=== PATIENT | female | born 1985 | race Two or more races ===

== ENCOUNTER 2018-11-28 10:19 | Inpatient (IN) | payer OTHER ==
[2018-11-25 12:56] VITALS: BMI 38.4
[2018-11-28] MEDS ORDERED: BUPIVACAINE HCL 0.25% 125 MG/50 ML VIAL ONE (11:04)
[2018-11-28] MEDS ORDERED: MIDAZOLAM HCL 2 MG/2 ML SINGLE DOSE VIAL ONE ×2 (11:16→12:20)
[2018-11-28] MEDS ORDERED: BUPIVACAINE HCL/PF 0.5% (5 MG/ML) 30 ML VIAL IJ ONE (11:17)
[2018-11-28] MEDS ORDERED: DEXAMETHASONE SOD PHOSPHATE/PF 10 MG/ML SDV ONE (11:17)
--- NOTE | 2018-11-28 11:57 | HP ---
Admitting History and Physical - Admission Chief Complaint: Morbid obesity History Source: Patient Limitations to Obtaining History: No Limitations - Past Medical History Pulmonary: Yes: Sleep Apnea ...LMP: 11/14/18 - Past Surgical History Past Surgical History: Yes: Hysterectomy - Smoking History Smoking history: Never smoked Have you smoked in the past 12 months: No - Alcohol/Substance Use Hx Alcohol Use: No - Social History ADL: Independent Home Medications - Allergies Allergies/Adverse Reactions: Allergies Allergy/AdvReac Type Severity Reaction Status Date / Time Penicillins Allergy Unknown Verified 11/25/18 12:45 - Home Medications Home Medications: Ambulatory Orders Docusate Sodium [Colace -] 100 mg PO TID #90 capsule 11/28/18 Famotidine [Pepcid] 20 mg PO BID #60 tablet 11/28/18 Ondansetron [Zofran -] 8 mg PO TID #30 tablet 11/28/18 Oxycodone HCl/Acetaminophen [Percocet 5-325 mg Tablet] 1 - 2 tab PO Q6H #28 tab MDD 4 11/28/18 Family Medical History Family History: Unremarkable Review of Systems - Review of Systems Constitutional: denies: Chills, Fever HENT: reports: No Symptoms Neck: reports: No Symptoms Cardiovascular: reports: No Symptoms Respiratory: reports: No Symptoms Gastrointestinal: reports: No Symptoms Neurological: reports: No Symptoms Pain Intensity: 0 Physical Examination Vital Signs: Vital Signs Temperature 97.9 F 11/28/18 10:45 Pulse Rate 76 11/28/18 10:45 Respiratory Rate 18 11/28/18 10:45 Blood Pressure 128/86 11/28/18 10:45 O2 Sat by Pulse Oximetry (%) Constitutional: Yes: Calm, Obese HENT: Yes: WNL Neck: Yes: WNL Cardiovascular: Yes: WNL Respiratory: Yes: Regular Gastrointestinal: Yes: Soft, Abdomen, Obese Neurological: Yes: Alert, Oriented Problem List - Problems (1) Morbid obesity due to excess calories Code(s): E66.01 - MORBID (SEVERE) OBESITY DUE TO EXCESS CALORIES (2) Sleep apnea Code(s): G47.30 - SLEEP APNEA, UNSPECIFIED (3) BMI 38.0-38.9,adult Code(s): Z68.38 - BODY MASS INDEX (BMI) 38.0-38.9, ADULT Assessment/Plan Laparoscopic possible open vertical sleeve gastrectomy possible liver biopsy, upper endoscopy
[2018-11-28] MEDS ORDERED: ONDANSETRON 4 MG/2 ML VIAL IVPUSH PRN (12:07)
[2018-11-28] MEDS ORDERED: LACTATED RINGERS SOLUTION 1,000 ML IV SCH (12:15)
[2018-11-28] MEDS ORDERED: DEXAMETHASONE SOD PHOSPHATE 4 MG/1 ML VIAL ONE (12:20)
[2018-11-28] MEDS ORDERED: PROPOFOL 20 ML ONE (12:20)
[2018-11-28] MEDS ORDERED: fentaNYL CITRATE 250 MCG/5 ML VIAL ONE (12:21)
[2018-11-28] MEDS ORDERED: ROCURONIUM BROMIDE 50 MG/5 ML SYRINGE ONE (12:24)
[2018-11-28] MEDS ORDERED: ePHEDrine SULFATE 50 MG/1 ML AMPULE ONE (12:25)
[2018-11-28] MEDS ORDERED: BUPIVACAINE HCL/PF 2.5 MG/ML - 30 ML VIAL IJ ONE (13:31)
[2018-11-28] MEDS ORDERED: HYDROmorphone HCL CARPU-JECT 1 MG/1 ML DISP.SYRIN IVPB PRN (13:43)
[2018-11-28] MEDS ORDERED: NEOSTIGMINE METHYLSULFATE 0.5 MG/ML - 10 ML MDV ONE (13:44)
[2018-11-28] MEDS ORDERED: ONDANSETRON 4 MG/2 ML VIAL IVPUSH SCH (13:45)
[2018-11-28] MEDS ORDERED: ACETAMINOPHEN 1000 MG/100 ML VIAL (NON FORMULARY) IVPB SCH (13:45)
[2018-11-28] MEDS ORDERED: METOCLOPRAMIDE HCL INJECTION 10 MG/2 ML VIAL IVPUSH SCH (13:45)
[2018-11-28] MEDS ORDERED: SODIUM CHLORIDE 1,000 ML IV SCH (13:45)
--- NOTE | 2018-11-28 13:50 | OP ---
Operative Note - Note: Operative Date: 11/28/18 Pre-Operative Diagnosis: Morbid obesity. Sleep apnea Operation: Diagnostic laparoscopy. Laparoscopic vertical sleeve gastrectomy. Laparoscopic wedge liver biopsy Post-Operative Diagnosis: Same as Pre-op (as well as hepatomegaly) Surgeon: Santino Francis Sheriff Sergeant: Christian Macdonald Anesthesia: General Specimens Removed: Greater curvature of stomach. Liver biopsy Estimated Blood Loss (mls): 30 Drains & Tubes with Location: 36 fr Bougie Operative Report Dictated: Yes
[2018-11-28] MEDS ORDERED: FAMOTIDINE 20 MG/50 ML IVPB 20 MG/50 ML MG IVPB ONE (14:06)
[2018-11-28] MEDS ORDERED: FAMOTIDINE 20 MG PREMIXED IVPB IVPB ONE (14:08)
[2018-11-28 14:23] LABS: HEMATOCRIT 37.3 % (32.4-45.2); HEMOGLOBIN 12.2 GM/dl (10.7-15.3); MCH 27.9 pg (25.7-33.7); MCHC 32.6 g/dl (32.0-36.0); MEAN CELL VOLUME 85.7 fl (80-96); MEAN PLT VOLUME 12.1 fl (7.5-11.1); PLATELET COUNT 251 K/MM3 (134-434); RBC 4.36 M/mm3 (3.60-5.2); RDW 13.9 % (11.6-15.6); WHITE BLOOD COUNT 15.6 K/mm3 (4.0-10.8)
[2018-11-28 14:30] LABS: ALBUMIN 3.3 g/dl (3.4-5.0); BILIRUBIN,TOTAL 0.4 mg/dl (0.2-1); CALCIUM 8.6 mg/dl (8.5-10); CREATININE 0.6 mg/dl (0.55-1.3); POTASSIUM 3.6 mmol/L (3.5-5.1); TOT PROT 6.5 g/dl (6.4-8.2)
--- NOTE | 2018-11-28 15:50 | SPEC ---
DATE OF OPERATION: 11/28/2018 SURGEON: Santino Francis MD SOFTWARE CLIENT ARCHITECT: Christian Macdonald MD PLACE OF SERVICE: [facility], [address] [place] [address] PREOPERATIVE DIAGNOSES: 1. Morbid obesity. 2. Obstructive sleep apnea. 3. Body mass index of 30.4. POSTOPERATIVE DIAGNOSES: 1. Morbid obesity. 2. Obstructive sleep apnea. 3. Body mass index of 30.4. 4. Hepatomegaly. PROCEDURES: 1. Diagnostic laparoscopy. 2. Laparoscopic vertical sleeve gastrectomy. 3. Laparoscopic wedge liver biopsy. ESTIMATED BLOOD LOSS: 30 mL. DRAINS: None. ANESTHESIA: GET. BOUGIE SIZE: 36 Syriac. REASON FOR PROCEDURE: This is a 33-year-old female who presents for weight loss options. After describing different options, she decided to proceed with a laparoscopic, possible open vertical sleeve gastrectomy, possible liver biopsy, upper endoscopy. RISKS AND BENEFITS: After describing the different options for weight loss management, the patient decided to proceed with a laparoscopic, possible open vertical sleeve gastrectomy. The patient was seen by the respective subspecialties and cleared for surgery. The risks and benefits of the procedure were explained. These included bleeding, infection, hernia, ID, DVT, PE, injury to surrounding structures including the liver, colon, bowel, spleen, esophagus, vessel injury, nerve injury, weight regain, gastric leak, staple line leak, sleeve leak, obstruction, vitamin deficiency, hair loss and as some of the possible complications. The patient understood and signed informed consent. DESCRIPTION OF PROCEDURE: The patient was placed supine on the operating room table. The patient underwent general endotracheal intubation. The arms were brought out at 90 degrees and secured. A footboard was placed and the legs were secured laterally with padding. The abdomen was prepped and draped in the usual sterile fashion. A timeout was performed. An incision was made in the left upper quadrant and a Veress needle inserted. Pneumoperitoneum was established. Subsequently, the Veress needle was removed and a 5-mm trocar was placed under direct visualization with the laparoscope. The laparoscopic camera was then inserted and inspection of the abdominal cavity was performed. An incision was then made in the supraumbilical area and a 15-mm trocar was placed under direct visualization. A 5-mm trocar was then placed in the right upper quadrant and a 5-mm trocar was placed below the left subcostal margin. A stab wound was made in the subxiphoid area and a Jessica clamp inserted and removed to dilate the tract. A Ariana liver retractor was inserted. The post was secured at the bedside by the nursing staff. The patient was placed in steep reverse Trendelenburg position and the Ariana liver retractor was used to secure the liver towards the anterior abdominal wall. The pylorus was identified and 6 cm proximal to it, the lesser sac was entered using the LigaSure device. All lateral attachments to the greater curvature of the stomach, including the short gastric vessels, were ligated using the LigaSure device toward the gastrosplenic and gastrophrenic ligaments. Once this was done in its entirety, it was confirmed that all tubes within the nasal or oropharyngeal cavity, including a temperature probe were removed by Anesthesia. The bougie was then inserted by Anesthesia. Transection of the stomach was then begun staying adjacent to the bougie but away from the angularis. Transection of the stomach was performed near the portion of the stomach where the lesser sac was entered. Two laparoscopic Endo-DAVID black ijeoma were used at this location. Laparoscopic Endo DAVID purple staple loads were then used for the remainder of the transection until the greater curvature of the stomach was fully transected. This was done staying close to the bougie. Care was taken to stay away from the angle of His cephalad. The staple line was then inspected. Hemostasis was identified. A leak test was then performed. It was clamped distally to the staple line. Irrigation solution was placed in the left upper quadrant and air was insufflated by Anesthesia into the sleeve. No leaks were identified. No obstruction was identified. This was done through the entirety of the staple line. The stomach was suctioned and the bougie removed fully intact under direct visualization. At this point, the irrigation solution was suctioned and again, hemostasis was noted. A wedge liver biopsy was then performed. The left lobe of the liver was identified. A portion of the edge of the left lobe of the liver was grasped. Using electrocautery, a wedge of the left liver was excised. The specimen was removed and sent off the field. Hemostasis of the wedge liver biopsy site was attained and noted using electrocautery. The 15-mm supraumbilical trocar was then removed and the greater curvature specimen removed from the site using a sponge stick simeon. A Ulisses-Fátima device was then used to close the fascia with a 0 Vicryl suture at the site. Again, hemostasis was noted. The Ariana liver retractor was then removed under direct visualization. Pneumoperitoneum was desufflated. Hemostasis was noted at all incision sites and Marcaine was injected at all incision sites. A 3-0 Vicryl suture was used to close the deep subcutaneous tissue at the 15-mm incision site. All incision sites were closed using 4-0 Biosyn. Sterile dressings were applied. The patient tolerated the procedure well and was transferred to the recovery room in stable condition. Thelma PEDERSON/[id number]
[2018-11-28] MEDS: ONDANSETRON 4 MG/2 ML VIAL IVPUSH SCH ×2 (17:50→20:38)
[2018-11-28] MEDS: ACETAMINOPHEN 1000 MG/100 ML VIAL (NON FORMULARY) IVPB SCH (20:49)
[2018-11-28] MEDS: FAMOTIDINE 20 MG/50 ML IVPB 20 MG/50 ML MG IVPB SCH (21:08)
[2018-11-28] MEDS: ENOXAPARIN NA (PORCINE) 40 MG/0.4 ML DISP.SYRIN SQ SCH (21:08)
[2018-11-28] MEDS: METOCLOPRAMIDE HCL INJECTION 10 MG/2 ML VIAL IVPUSH SCH (21:08)
[2018-11-29] MEDS: ONDANSETRON 4 MG/2 ML VIAL IVPUSH SCH ×4 (00:13→13:49)
[2018-11-29] MEDS: METOCLOPRAMIDE HCL INJECTION 10 MG/2 ML VIAL IVPUSH SCH ×3 (03:24→14:16)
[2018-11-29] MEDS: ACETAMINOPHEN 1000 MG/100 ML VIAL (NON FORMULARY) IVPB SCH ×2 (03:24→10:11)
[2018-11-29 06:39] VITALS: TEMP 98.3
[2018-11-29 07:06] LABS: HEMOGLOBIN 11.3 GM/dl (10.7-15.3); MCH 28.2 pg (25.7-33.7); MCHC 33.2 g/dl (32.0-36.0); MEAN PLT VOLUME 12.1 fl (7.5-11.1); PLATELET COUNT 224 K/MM3 (134-434); RBC 3.99 M/mm3 (3.60-5.2); RDW 13.9 % (11.6-15.6); WHITE BLOOD COUNT 15.8 K/mm3 (4.0-10.8)
[2018-11-29 07:22] LABS: BILIRUBIN,TOTAL 0.4 mg/dl (0.2-1); CALCIUM 8.4 mg/dl (8.5-10); CREATININE 0.6 mg/dl (0.55-1.3); POTASSIUM 4.2 mmol/L (3.5-5.1); TOT PROT 6.1 g/dl (6.4-8.2)
--- NOTE | 2018-11-29 07:44 | DS ---
Physical Exam: SUBJECTIVE: Patient seen and examined OBJECTIVE: Vital Signs Temperature 98.3 F 11/29/18 05:00 Pulse Rate 78 11/29/18 05:00 Respiratory Rate 19 11/29/18 05:00 Blood Pressure 109/70 11/29/18 05:00 O2 Sat by Pulse Oximetry (%) 100 11/29/18 06:37 PHYSICAL EXAM GENERAL: The patient is awake, alert, and fully oriented, in no acute distress. HEAD: Normal with no signs of trauma. EYES: PERRL, extraocular movements intact, sclera anicteric, conjunctiva clear. NECK: Trachea midline LUNGS: Breath sounds equal, clear to auscultation bilaterally, no wheezes, no crackles, no accessory muscle use. HEART: Regular rate and rhythm ABDOMEN: Soft, nontender, nondistended, no guarding, no rebound, no hepatosplenomegaly, no masses. EXTREMITIES: warm, well-perfused, no edema. NEUROLOGICAL: Cranial nerves II through XII grossly intact. Normal speech, gait not observed. PSYCH: Normal mood, normal affect. SKIN: Warm, dry, normal turgor, no rashes or lesions noted. LABS CBC,CMP WBC 15.8 K/mm3 (4.0-10.8) H 11/29/18 07:00 RBC 3.99 M/mm3 (3.60-5.2) 11/29/18 07:00 Hgb 11.3 GM/dl (10.7-15.3) 11/29/18 07:00 Hct 34.0 % (32.4-45.2) 11/29/18 07:00 MCV 85.0 fl (80-96) 11/29/18 07:00 MCH 28.2 pg (25.7-33.7) 11/29/18 07:00 MCHC 33.2 g/dl (32.0-36.0) 11/29/18 07:00 RDW 13.9 % (11.6-15.6) 11/29/18 07:00 Plt Count 224 K/MM3 (134-434) 11/29/18 07:00 MPV 12.1 fl (7.5-11.1) H 11/29/18 07:00 Sodium 136 mmol/L (136-145) 11/29/18 07:00 Potassium 4.2 mmol/L (3.5-5.1) 11/29/18 07:00 Chloride 108 mmol/L (98-107) H 11/29/18 07:00 Carbon Dioxide 22 mmol/L (21-32) 11/29/18 07:00 Anion Gap 6 MMOL/L (8-16) L 11/29/18 07:00 BUN 8.0 mg/dl (7-18) 11/29/18 07:00 Creatinine 0.6 mg/dl (0.55-1.3) 11/29/18 07:00 Est GFR (CKD-EPI)AfAm 137.83 11/29/18 07:00 Est GFR (CKD-EPI)NonAf 118.92 11/29/18 07:00 Random Glucose 128 mg/dl (74-106) H 11/29/18 07:00 Calcium 8.4 mg/dl (8.5-10) L 11/29/18 07:00 Total Bilirubin 0.4 mg/dl (0.2-1) 11/29/18 07:00 AST 37 U/L (15-37) 11/29/18 07:00 ALT 32 U/L (13-61) 11/29/18 07:00 Alkaline Phosphatase 75 U/L (45-117) D 11/29/18 07:00 Total Protein 6.1 g/dl (6.4-8.2) L 11/29/18 07:00 Albumin 3.0 g/dl (3.4-5.0) L 11/29/18 07:00 HOSPITAL COURSE: Date of Admission:11/28/18 Date of Discharge: 11/29/18 HOSPITAL COURSE: The patient was admitted to the Med-Surg Unit after elective bariatric surgery. Now, s/p laparoscopic vertical sleeve gastrectomy. The day of surgery, the patient ambulated the hallways with assistance. The patient was monitored with remote tele/continuous pulse ox. Narcotic and non-narcotic pain management control was achieved with oral and IV pain control. Upper GI series was obtained the following morning and no leak, extravastion or gastric outlet obstruction. Started on a Bariatric Stage 1 diet and tolerated well. Monika-operative IV ABX were administered in addition to GI prophylaxis. DVT prophylaxis was achieved with SCDs and early ambulation. The discharge instructions and an oral pain management plan were reviewed with the patient. All questions answered. Above plan discussed with Dr. Francis and agreed. Minutes to complete discharge: 20
--- NOTE | 2018-11-29 09:12 | PN ---
Progress Note (short form) - Note Progress Note: Anesthesia post op Pt seen and examined S:Alert and awake O: Vital Signs Temperature 98.3 F 11/29/18 05:00 Pulse Rate 78 11/29/18 05:00 Respiratory Rate 19 11/29/18 05:00 Blood Pressure 109/70 11/29/18 05:00 O2 Sat by Pulse Oximetry (%) 100 11/29/18 06:37 CBC, BMP 11/29/18 07:00 11/29/18 07:00 a/p: Current Active Problems BMI 38.0-38.9,adult (Acute) Hepatomegaly (Acute) Morbid obesity due to excess calories (Acute) Sleep apnea (Acute) s/p gastic sleeve Doing well post op Continue current care Isaias Trotter MD
[2018-11-29] MEDS: ENOXAPARIN NA (PORCINE) 40 MG/0.4 ML DISP.SYRIN SQ SCH (10:12)
[2018-11-29] MEDS: FAMOTIDINE 20 MG/50 ML IVPB 20 MG/50 ML MG IVPB SCH (10:12)
[2018-11-29] MEDS ORDERED: oxyCODONE HCL 5 MG TABLET PO PRN (11:50)
[2018-11-29] MEDS ORDERED: SODIUM CHLORIDE 1,000 ML IV SCH (12:00)
[2018-11-29 14:44] VITALS: BP 98/62; PULSE 69
--- NOTE | 2018-12-01 11:26 | PATH ---
Surgical Pathology Report Patient Name: RACHEL CAVAZOS Med. Rec. #: [id number] /Age/Gender: 1985 (Age: 33) / F Account: [id number] Location: [facility] Taken: 11/28/2018 Received: 11/28/2018 Reported: 12/01/2018 Physicians: Santino Francis M.D. Specimen(s) Received A: GREATER CURVATURE STOMACH B: LIVER BIOPSY Clinical History Morbid obesity Final Diagnosis A. GREATER CURVATURE OF STOMACH, LAPAROSCOPIC GASTRIC SLEEVE EXCISION: PORTION OF STOMACH SHOWING MILD CHRONIC MUCOSAL INFLAMMATION. IMMUNOSTAIN IS NEGATIVE FOR H. PYLORI ORGANISMS. B. LIVER, BIOPSY: LIVER SHOWING MINIMAL STEATOSIS (< 1%). TRICHROME STAIN SHOWS NO APPRECIABLE INCREASE IN FIBROSIS. IRON STAIN SHOWS NO INCREASE IN IRON DEPOSITS. Electronically Signed Willow Boswell M.D. Gross Description A. Received in formalin, labeled "greater curvature stomach," is a 73 gram, 15.0 x 2.7 x 2.7 cm. portion of stomach with a stapled margin of resection. The serosa is byrd-hopson with minimal attached fat. The mucosa is byrd-pink with normal folds. No mucosal masses are identified. Lifter sections are submitted in one cassette. B. Received in formalin labeled "liver biopsy," is a 1.7 x 0.8 x 0.4 cm byrd portion of soft tissue, consistent with liver biopsy. The specimen is bisected and entirely submitted in one cassette. /11/29/2018 saudi11/29/2018
== END 2018-11-29 16:25 | disposition home or self-care (01) | DRG 403 ==
LOC: FM/S 10:19
PROVIDERS: ADMIT Surgery; ATTEND Surgery
PROC: 0DJ04ZZ Inspection of Upper Intestinal Tract, Percutaneous Endoscopic Approach (ICD-10-PCS; 2018-11-28)
PROC: 0FB24ZX Excision of Left Lobe Liver, Percutaneous Endoscopic Approach, Diagnostic (ICD-10-PCS; principal; 2018-11-28 13:02)
PROC: 0DB64Z3 Excision of Stomach, Percutaneous Endoscopic Approach, Vertical (ICD-10-PCS; 2018-11-28 13:02)
DX: E66.01 Morbid (severe) obesity due to excess calories (principal); Z68.30 Body mass index [BMI] 30.0-30.9, adult; R16.0 Hepatomegaly, not elsewhere classified; G47.33 Obstructive sleep apnea (adult) (pediatric)
CPT/HCPCS: 36415; 74241-TC-FY; 80053; 84703; 85027; 94760; J0131; J7030